=== PATIENT | female | born 1940 | race Caucasian/White ===

== ENCOUNTER 2016-07-09 11:25 | Inpatient (IN) | payer MEDICARE, OTHER ==
[2016-07-07 12:27] LABS: HEMOGLOBIN 11.3 g/dL (12.0-16.0)
[2016-07-07 12:29] LABS: HEMATOCRIT 33.3 % (36.0-48.0)
[2016-07-07 12:42] LABS: BUN (BLOOD UREA NITROGEN) 12 MG/DL (6-23); CALCIUM, SERUM 9.3 MG/DL (8.5-10.4); CHLORIDE, SERUM 99 MMOL/L (96-112); CO2 (CARBON DIOXIDE) 28 MMOL/L (24-34); CREATININE 0.63 MG/DL (0.55-1.02); GFR AFRICAN AMERICAN 102 ML/MIN (>=60); GFR NON AFRICAN AMERICAN 88 ML/MIN (>=60); POTASSIUM, SERUM 4.1 MMOL/L (3.5-5.3); SODIUM, SERUM 134 MMOL/L (135-148)
[2016-07-07 12:43] LABS: GLUCOSE, SERUM 169 MG/DL (60-99)
--- NOTE | ~2016-07-09 | OP ---
Record Of Operation [facility] [address] [place]. [address] NAME: MARCOS VEGA : 41 STATUS : ADM IN PAT#: [id number] AGE: 75 ADM/REG DATE : 07/09/16 MR#: [id number] REPORT SERV DATE: 07/10/16 DICTATED BY: RUSS PIRES DATE: 07/09/16 REPORT STATUS : Draft TRANSCRIBED BY: MODL DATE: 07/09/16 DATE OF PROCEDURE: PREOPERATIVE DIAGNOSES: Pseudoarthrosis, broken hardware, and loss of lumbar lordosis. POSTOPERATIVE DIAGNOSES: Pseudoarthrosis, broken hardware, and loss of lumbar lordosis. PROCEDURES: 1. Hardware removal, lumbar spine. 2. Posterior spinal fusion with dual aurora Solera titanium spinal instrumentation, L2 to the pelvis. SURGEON: Russ Pires D.O. RV MECHANIC: Edmond Meza. ANESTHESIA: General. ESTIMATED BLOOD LOSS: 150 mL. INDICATION FOR SURGERY: Indications for surgery and risks were explained. They are listed in the history and physical as well as office notes. See that for detail. DESCRIPTION OF PROCEDURE: Antibiotic prophylaxis was given. Neurophysiology monitoring leads were inserted. The patient was brought to the operative suite. General anesthetic including endotracheal intubation was administered. Fuller catheter was placed with sterile technique. The patient was placed prone on a Moreno spine frame. Bony prominences were carefully padded. Thoracolumbar spine was scrubbed with Hibiclens solution. DuraPrep was painted. Sterile drapes were applied. Even with passive positioning in a prone position, we saw some correction of the lumbar kyphotic deformity. With loupe magnification and headlight illumination, a midline incision was carried out at the T12 of the pelvis. The midline and fascial incision was carried out. Hardware was exposed completely. There was hardware at L2 and L3. There was a broken hardware that had broken just above the L5. The screw at L5 on the left was removed. The screw at L5 on the right as well as the broken aurora on the right side was removed. We then used a carbide bit and transected the aurora between L2 and L3, so that we could use a ravin for reconnecting. The screws at L3 were removed. We carefully debrided the soft tissues, and was able to expose the transverse processes from L2 to L3 as well as L5 and the proximal sacrum. There was already a fusion at L5-S1, and after the debridement, the wound was irrigated, we then placed a stab wound over the right posterior superior iliac spine. A percutaneous pin with navigational frame was attached and intraoperative CT scan was obtained. CT information was used to register the navigational system. Record Of Operation [facility] [address] [address] NAME: MARCOS VEGA : 41 STATUS : ADM IN PAT#: [id number] AGE: 75 ADM/REG DATE : 07/09/16 MR#: [id number] REPORT SERV DATE: 07/10/16 DICTATED BY: RUSS PIRES DATE: 07/09/16 REPORT STATUS : Draft TRANSCRIBED BY: ALLISON DATE: 07/09/16 With navigational assistance, we were then able to drill a military pilot hole through the S2 sacral element to the alum with sacroiliac screw. Printing Machinist hole was developed on left and right side. Also, the S1 military pilot hole was drilled. We then tapped the S1 and the sacroiliac screw. We then inserted an 8.5 x 70 mm screw at S2 into the ilium and a 7.5 x 50 mm at S1 bilateral. We then placed new 8.5 x 50 mm screws at L5 and we then placed a 7.5 x 50 at L3 on the right. At L3 on the left, there was an actual broken screw with the shaft of the screw still in the pedicle. We then cut a aurora appropriately, contoured it for lordosis. The aurora was then connected with a ravin to the original hardware from L2 distally. We connected the aurora to all the tulips of the pedicle screws. We corrected as much of the deformity as possible. We then used an open close [id number] connectors. We placed a dual aurora medially at the left and right side to reinforce and strengthen the overall construct. Finally, a 10 cm in length allograft Magna Fuse grafting material was coated with a small dosage of bone morphogenic protein from L2 to the pelvis. Any local bone that we had removed was also added to the grafting material. The posterolateral fusion from L2 to the sacrum was completed. Intraoperative CT scan though on repeat showing good position of all implants. The wound had been copiously irrigated prior to final wound closure. We did place some vancomycin 1 g powder within the wound locally. A double looped #1 PDS was used for fascial closure, subcutaneous tissue closed with 2-0 Vicryl sutures, 2-0 vertical mattress nylon suture used for skin closure. Sterile dressings applied. The patient was awakened, extubated, taken to recovery room in satisfactory condition having tolerated the procedure well. MAMADOU/ALLISON Russ Pires D.O. / [id number] CC: Russ Pires D.O.
--- NOTE | ~2016-07-09 | CN ---
Consultation Report [facility] [address] [place]. [address] NAME: MARCOS VEGA : 41 STATUS : ADM IN [facility]#: [id number] AGE: 75 ADM/REG DATE : 07/09/16 MR#: [id number] REPORT SERV DATE: 07/10/16 DICTATED BY: YURIPINGLEYLA MELENDEZ DATE: 07/10/16 REPORT STATUS : Draft TRANSCRIBED BY: MODL DATE: 07/10/16 CONSULTATION DATE OF CONSULTATION: 07/09/2016 REASON FOR CONSULTATION: Consulted for diabetes management. IDENTIFYING DATA: 1. PCP, Dr. Daniel Randall. 2. Orthopedist, Lexa Conley, previously Dr. Mele Barreto, as well as surgeon, Dr. Anup Simons. HISTORY OF PRESENT ILLNESS: This is a pleasant 75-year-old female. She is resting in bed, in no acute distress. She has a history of diabetes type 2, hypertension, high cholesterol, and osteoarthritis. The patient is admitted by Dr. Lexa Conley with difficulty in ambulation as well as back pain. She is presently status post posterior hardware removal of lumbar L3-S1, double aurora construct L2 to pelvis with fusion on 07/09/2016. [facility] has been consulted to help manage her diabetes while she is inpatient. The patient's history was obtained through interview with the patient as well as review of [employer] and [email or web address]. PAST MEDICAL HISTORY: 1. Migraine. 2. Wears glasses. 3. Osteopenia. 4. Osteoarthritis. 5. Bilateral nerve pain. 6. Hypertension. 7. High cholesterol. 8. Left bundle-branch block. 9. Bladder incontinence. 10.Diabetes, type 2 with average blood sugars 65 to 110. 11.Anxiety. 12.Problems with anesthesia in difficulty awakening and nausea and vomiting. HOME MEDICATIONS: 1. Norvasc 5 mg p.o. every morning. 2. Aspirin 81 mg p.o. every morning. 3. Calcium plus vitamin D 1200 mg p.o. twice a day. 4. Neurontin 600 mg p.o. three times daily. 5. Amaryl 2 mg p.o. at bedtime. 6. Amaryl 4 mg p.o. every morning. 7. [place]elow 5/325, one tablet p.o. every six hours, p.r.n. 8. Lantus 25 units subcu at bedtime. Consultation Report [address] [place]. [address] NAME: MARCOS VEGA : 41 STATUS : ADM IN PAT#: [id number] AGE: 75 ADM/REG DATE : 07/09/16 MR#: [id number] REPORT SERV DATE: 07/10/16 DICTATED BY: PING WELCH DATE: 07/10/16 REPORT STATUS : Draft TRANSCRIBED BY: ALLISON DATE: 07/10/16 9. Glucophage 1000 mg p.o. twice a day. 10.Centrum one tablet p.o. daily. 11.[place]-3 fatty acid 1000 mg p.o. twice a day. 12.Garlique one tablet p.o. every day at bedtime. 13.MiraLAX powder 17 g p.o. every morning. 14.Mylanta p.r.n. 15.Diovan HCT 320/25 one tablet p.o. every morning. ALLERGIES: CODEINE AND ADHESIVE TAPE. SOCIAL HISTORY: The patient is for approximately 59 years, has no children. She was a previous smoker and quit in the . She does drink a glass of red wine usually five to six days a week. She has stairs, but she stay is in the main entry of her living area in her home. She has had to use a walker and a cane for ambulation prior to her lumbar surgery. FAMILY HISTORY: She is positive for diabetes. Father had black lung and worked in the coal mines and was in 1960. Mother was diabetic. Brother is from pancreatic cancer. The patient had one brother and four sisters besides herself. SURGICAL HISTORY: 1. Bilateral IOLI in 2007. 2. Colonoscopy in 2012. 3. Bladder sling in 2003. 4. 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 5. Stress test was done in 2006. 6. Numerous lumbar surgeries, lumbar laminectomy 2000. Additional lumbar fusion in 2008. 7. Lumbar rods in 2011 and 2012 with instrumentation. 8. Breast surgery for benign cyst in 1974, in 1983, and 1989. 9. Neck surgery for benign nodule in 1979 and 1982. 10.Throat surgery in 2002. 11.Left wrist surgery in 2009. REVIEW OF SYSTEMS: Negative other than what is included with HPI. The patient awakens without difficulty, is alert and oriented x3. Has no shortness of breath. No nausea or vomiting. No abdominal pain. No chest pain. No fever. Displays no confusion or agitation. PHYSICAL EXAMINATION: VITAL SIGNS: From today blood pressure 126/52, respiratory rate 16, heart rate 87, temperature 97.7, O2 saturation 97% on 3 L nasal cannula. GENERAL: This is a very pleasant 75-year-old female, resting in bed. She is in no acute distress. She awakens for this consultation with her family at bedside. NEURO: Her head is atraumatic, normocephalic. She is alert and oriented x3. Cranial nerves are intact. Mood is pleasant and appropriate. Consultation Report [address] [place]. [address] NAME: MARCOS VEGA : 41 STATUS : ADM IN [facility]#: [id number] AGE: 75 ADM/REG DATE : 07/09/16 MR#: [id number] REPORT SERV DATE: 07/10/16 DICTATED BY: PING WELCH DATE: 07/10/16 REPORT STATUS : Draft TRANSCRIBED BY: ALLISON DATE: 07/10/16 NECK: Supple. Trachea is midline. No JVD noted. No obvious thyromegaly or lymphadenopathy. EENT: Her sclerae are nonicteric. Pupils are equal and reactive to light. Her nares are patent. Mucous membranes moist. Tongue is midline. No deviation. Soft palate rises equally on phonation. CHEST: No pain with palpation. LUNGS: Clear to auscultation bilaterally. She has normal respiratory effort. She is diminished in the bases. She shows no increased work of breathing with conversation. She is instructed on the need to use an incentive spirometer to prevent atelectasis and pneumonia. CARDIOVASCULAR: S1, S2. No obvious murmurs, rubs, or gallops. She is on defensive monitoring with a regular rhythm and sinus rhythm with a rate at 87. ABDOMEN: Soft, nontender. She does have very hypoactive bowel sounds. No palpable organomegaly. EXTREMITIES: No edema. Normal distal pulses. No calf tenderness. She has SCDs and TEDs on for DVT prophylaxis. SKIN: Warm and dry. No unusual rashes or lesions. Normal color and turgor for age. PSYCH: She is pleasant, cooperative, appropriate mood and affect. SURGICAL WOUND SITE: Dressing is clean, dry, and intact. LABORATORY DATA: Sodium 137, potassium 3.9, chloride 102, BUN 8, creatinine 0.59, GFR 105, glucose 161, calcium 8.5. White blood cell 13.2, hemoglobin 10.4, hematocrit 30.4, platelets 276. Blood sugars were 169, 161, 180, 203. The patient has a chest x-ray that is ordered for this a.m. postoperatively. On 07/07/2016, the patient had an ECG that showed normal sinus rhythm at a rate of 78 with a left bundle-branch block and possible left atrial enlargement. The patient had a previous myocardial perfusion scan on 07/2007, which showed no ischemia and an EF of greater than 50%. ASSESSMENT AND PLAN: 1. Diabetes ,type 2. Aware. The patient does check her blood sugars two times a day. She is normally on Amaryl, metformin, and Lantus at home. Presently, her Amaryl and metformin are held. She is on a sliding scale insulin level 2. Her Lantus will be restarted when she can be placed on a solid diet of cardiac 1800 ADA when okay with Dr. Conley. We will have a informatics educator to see her regarding diet and monitoring of blood sugars. For now, we will continue holding metformin and Amaryl. 2. Hypertension. Aware. The patient is on blood pressure medicines. Presently, her blood pressure is controlled. We will continue her Norvasc and her Diovan HCT in the morning and her a.m. dose of aspirin will be held. 3. Neuropathy. Aware. The patient will be continued on her gabapentin. 4. Labs: For a.m. BMP, magnesium, phosphorus, CBC, hemoglobin A1c, and a portable chest x- ray. Consultation Report [address] [address] NAME: MARCOS VEGA : 41 STATUS : ADM IN [facility]#: [id number] AGE: 75 ADM/REG DATE : 07/09/16 MR#: [id number] REPORT SERV DATE: 07/10/16 DICTATED BY: PING WELCH DATE: 07/10/16 REPORT STATUS : Draft TRANSCRIBED BY: ALLISON DATE: 07/10/16 [facility] would like to thank you for this consultation. Let us know if we could be of further assistance. CAL Ping Welch NP / [id number] CC: Lexa Conley D.O.
--- NOTE | ~2016-07-09 | DS ---
Discharge Summary [facility] [address] [place]. [address] NAME: MARCOS VEGA : 41 STATUS : DIS IN PAT#: [id number] AGE: 75 ADM/REG DATE : 07/09/16 MR#: [id number] REPORT SERV DATE: 07/21/16 DICTATED BY: LEXA PIRES DATE: 07/18/16 REPORT STATUS : Draft TRANSCRIBED BY: MODLeticia DATE: 07/18/16 Data Collection from hospitalization DISCHARGE DIAGNOSES: 1. Pseudoarthrosis, L3-4. 2. Flat back deformity. 3. Diabetes mellitus type 2. 4. Osteoarthritis. 5. Osteopenia. CONSULTATIONS: Ping Parker NP PROCEDURES PERFORMED: Hardware removal, lumbar spine, posterior spinal fusion with dual-aurora Solera titanium spinal instrumentation L2 to the pelvis, 07/09/2016. PATHOLOGY: Tissue from lumbar spine area, benign soft tissue, reactive changes and granular pigmented material resembling tattoo or carbonaceous material, benign bone and cartilage. Orthopedic hardware, see gross examination. MEDICATIONS: Norvasc 5 mg every morning, aspirin 81 mg every morning, calcium plus vitamin D 1200 mg twice daily, Neurontin 600 mg three times daily, MiraLAX powder one packet daily, Diovan 320 mg daily, Levemir 25 units subcutaneously at bedtime, Mylanta 30 mL as needed, Dulcolax 10 mg rectally as needed, Dulcolax 15 mg orally as needed, Valium 2 mg every four hours as needed, Glucophage 1000 mg twice daily, [place] 7.5/325 one or two every 4 hours as needed, milk of magnesia 30 mL twice daily as needed, Zofran 4 mg every four hours as needed, Phenergan 6.25 mg every four hours as needed, fleets enema rectally as needed. CONDITION AT DISCHARGE: Upon discharge, she did appear to be doing well and had no complaints. DISPOSITION: She had been discharged with transfer to [facility] to continue a diabetic diet. She was also to continue with physical therapy and occupational therapy as directed. She was to follow up with Cayla Almeida on 07/24/2016. HOSPITAL COURSE: This 75-year-old female who had had previous L1-S1 fusion. She had done well following corrective surgery for flat back deformity, but now had come in with a aurora protruding through the skin distally near the L5 area. She has had the previous surgery several years ago, but only now had the aurora that had actually come through the skin. She was admitted for presumed pseudoarthrosis in the lower lumbar spine and then some place also she had fallen and there was some increasing flat back deformity following the aurora breakage and the screw protruding through the skin. She was to have an open procedure with a aurora being cutoff at approximately L3. She was then to have screws at L5-S1 and S2 sacroiliac screws were to be placed. This will be a aurora connected through the ravin, then there will be a 2nd aurora added on each side to try to increase the overall strength across the thoracolumbar junction and prevent aurora breakage again. She did understand there was definitely a risk involved. The risks and benefits of surgery as well as alternatives had been discussed with the patient and she was agreeable to proceed. She was admitted for this and further treatment. Upon admission to the hospital, she had been taken to the operating Discharge Summary [address] [address] NAME: MARCOS VEGA : 41 STATUS : DIS IN PAT#: [id number] AGE: 75 ADM/REG DATE : 07/09/16 MR#: [id number] REPORT SERV DATE: 07/21/16 DICTATED BY: LEXA PIRES DATE: 07/18/16 REPORT STATUS : Draft TRANSCRIBED BY: ALLISON DATE: 07/18/16 room where she did undergo the above procedure. She tolerated this well and was transferred to the recovery room. On postop, she had been seen by Ping Parker for diabetes management. She noted the patient was normally on Amaryl, metformin, and Lantus at home. However, her Amaryl and metformin were on hold and she was on sliding scale insulin level 2. Her Lantus insulin was restarted and she had been placed on an 1800-calorie ADA diet when she was able to eat solids. She was also to undergo diabetic education while in the hospital. She was to continue with Norvasc and Diovan HCT for her blood pressure. She was also to continue with gabapentin for her neuropathy. On postop day #1, she did appear to be doing well and had no complaints. She had been placed on oral medications and was evaluated by Physical Therapy. Her hemoglobin A1c was checked and was noted to be at 7.7. Levemir was to be started at a lower rate. She was continued on her current medications. On postop day #2, she was noted to be tolerating a liquid diet without difficulty. She was afebrile and her vital signs had remained stable. She was noted to have some nausea and vomiting, however this did resolve. She was noted to be hypokalemic with a potassium of 3.3 and this was being replaced per electrolyte protocol. She was also hyponatremic with a sodium of 131. On postop day 3, she was afebrile and her vital signs had remained stable. Her only complaint was that she had not had a bowel movement yet, she did state that she takes MiraLAX at home and her MiraLAX dosage was increased. Her hemoglobin was at 10.3, hematocrit 30.4. She was encouraged to ambulate with physical therapy. On postop day #4, she did remain in stable condition, however had complaints of the lumbar dressing itching. She did state that she had a history of rash and itching with adhesives and she was noted to have a small area of redness at the upper area of the Tegaderm site. She was instructed to use ice to the area as needed, and she was to have her dressing changed if the rash worsened. She did remain in stable condition and then was discharged later that same day with the above instructions. Information collected by: Kin Rodríguez. I submit the above information as my discharge summary. MIGUEL/ALLISON Lexa Pires D.O. / [id number] CC: Jean Carlos Ponce M.D. [facility]
--- NOTE | ~2016-07-09 | PREOPHP ---
PreOp History and Physical [facility] [address] [place]. [address] NAME: MARCOS VEGA : 42 STATUS : ADM IN [facility]#: [id number] AGE: 75 ADM/REG DATE : 07/09/16 MR#: [id number] REPORT SERV DATE: 07/10/16 DICTATED BY: LEXA PIRES DATE: 07/09/16 REPORT STATUS : Draft TRANSCRIBED BY: ALLISON DATE: 07/09/16 CHIEF COMPLAINT: Low back pain. HISTORY OF PRESENT ILLNESS: This is a 75-year-old female who has had previous L1-S1 fusion. She has done well following corrective surgery for a flat back deformity, but now has come in with a aurora protruding through the skin distally near the L5 area. The patient has had the previous surgery several years ago, but only now has had the aurora that has actually come through the skin. The patient is now being admitted for a presumed pseudoarthrosis in the lower lumbar spine and in some place. Also, the patient has fallen and there is some increasing flat back deformity following the aurora breakage and the screw protruding through the skin. We will have an open procedure with the aurora being cut off at approximately L3. We will then place screws at L5-S1 and S2 sacroiliac screws will be placed. This will be a aurora connected through the ravin. Then, there will be a second aurora added on each side to try to increase the overall strength across the thoracolumbar junction and prevent aurora breakage again. The patient understands there was definitely a risk involved. The risks including but not limited to persistent chronic deformity, chronic back pain, infection, there could always be some vascular or neurologic injury, although those were very small. Perioperative complications such as UTI, PE, pneumonia, VT, CVA, etc., were explained. Consent form has been signed. PAST MEDICAL HISTORY: Included diabetes mellitus type 2. She has osteoarthritis and osteopenia. Please note, we do have a recent DEXA scan, which shows only the osteopenia. There was no osteoporosis. PAST SURGICAL HISTORY: She has had lumbar spine surgery x2, carpal tunnel release, cataract, extraction of lens implant, skin biopsy, and skin cancer removal. CURRENT MEDICATIONS: Include amlodipine, aspirin, calcium, Centrum, gabapentin, glyburide, Lantus insulin and metformin, tramadol, valsartan. ALLERGIES: CODEINE CAUSES GI UPSET, AND VITAMINS. SOCIAL HISTORY: She is . Retired. Does not use any tobacco or alcohol. FAMILY HISTORY: Her mother had coronary artery disease. REVIEW OF SYSTEMS: She wears corrective lenses. Denies any chest pain, pressure, or shortness of breath. PHYSICAL EXAMINATION: VITAL SIGNS: She is 5 feet 6 inches, 148 pounds. BMI is 23.9. GENERAL: She is alert, cooperative, well oriented, ambulates independently. HEENT: Grossly normal except that her eyes have been altered by prior surgery. LUNGS: Clear to auscultation. HEART: Rate is regular and rhythmic. ABDOMEN: Soft with good bowel sounds. No peritoneal signs are noted. MUSCULOSKELETAL: The spine itself has some deformity. There is flat back deformity, but on PreOp History and Physical [address] [place]. [address] NAME: MARCOS VEGA : 42 STATUS : ADM IN [facility]#: [id number] AGE: 75 ADM/REG DATE : 07/09/16 MR#: [id number] REPORT SERV DATE: 07/10/16 DICTATED BY: LEXA PIRES DATE: 07/09/16 REPORT STATUS : Draft TRANSCRIBED BY: MODL DATE: 07/09/16 the left side, there is still a aurora protruding right through the skin. There were no obvious signs of infection. There is no drainage, etc. I did not take her through range of motion. She has negative straight leg raising sign. Her motor strengths are normal in both lower extremities. Her reflexes are absent. There is some stocking-glove decreased sensation from just below the knees distally including the feet and ankles. Toes are downgoing. No ankle clonus is found. No evidence of myelopathy noted. Orthopedically, she has no pain with movement of the hips, knees, or ankles. There is weak pulses in all four extremities, but they are symmetrical. No abnormal skin lesions are found. ASSESSMENT AND RECOMMENDATIONS: As listed above. /ALLISON Lexa Pires D.O. / [id number] CC: Jean Carlos Ponce M.D.
[~2016-07-09 11:25] MED LIST: AMARYL2 PO; AMARYL4 PO; ASAB PO; CALTRA600D PO; CENTRUM PO; CYANO1000T PO; DIOVAN HC2 PO; DIOVAN HCT320 MG/25 PO; FISH-EPA1000 MG PO; GARLIQUE PO; GLUCOPHAGE1000 MG PO; GLUCPH PO; GLYCOLAX POWDER PO; LANTUS SC; LIOR10 PO; MULTIPLE VIT PO; MYLANTA; NEUR600 PO; NORCO1 TA1 PO; NORV5 PO; ULTRAM50 PO; ZOCOR20 PO
[2016-07-09 19:32] LABS: BASOPHILS 0.2 %; BASOPHILS ABSOLUTE 0.03 10/3/uL (0.0-0.16); EOSINOPHILS 0.3 %; EOSINOPHILS ABSOLUTE 0.04 10/3/uL (0.0-0.53); HEMATOCRIT 30.4 % (36.0-48.0); HEMOGLOBIN 10.4 g/dL (12.0-16.0); IMMATURE GRANULOCYTES 0.3 %; IMMATURE GRANULOCYTES ABSOLUTE 0.04 10/3/uL (0.0-0.11); LYMPHOCYTES 5.6 %; LYMPHOCYTES ABSOLUTE 0.74 10/3/uL (0.67-4.30); MEAN CORPUS HGB CONC 34.2 g/dL (32.0-36.0); MEAN CORPUSCULAR HEMOGLOB 28.6 pg (26.0-34.0); MEAN PLATELET VOLUME 8.6 fL (9.2-13.0); MONOCYTES ABSOLUTE 0.13 10/3/uL (0.21-1.20); NEUTROPHILS 92.6 %; NEUTROPHILS ABSOLUTE 12.26 10/3/uL (2.02-8.40); PLATELET COUNT 276 10/3/uL (150-400); RBC DISTRIBUTION WIDTH 13.9 % (12.0-16.0); RED CELL COUNT 3.64 10/6/uL (4.0-5.6)
[2016-07-09 19:35] LABS: MANUAL DIFF NO %; MEAN CORPUSCULAR VOLUME 83.5 fL (80-100); WHITE BLOOD CELLS 13.2 10/3/uL (4.5-10.5)
[2016-07-09 19:45] LABS: CALCIUM, SERUM 8.5 MG/DL (8.5-10.4); CHLORIDE, SERUM 102 MMOL/L (96-112); CO2 (CARBON DIOXIDE) 28 MMOL/L (24-34); CREATININE 0.59 MG/DL (0.55-1.02); GFR AFRICAN AMERICAN 105 ML/MIN (>=60); GFR NON AFRICAN AMERICAN 90 ML/MIN (>=60); GLUCOSE, SERUM 161 MG/DL (60-99); POTASSIUM, SERUM 3.9 MMOL/L (3.5-5.3); SODIUM, SERUM 137 MMOL/L (135-148)
[2016-07-09 19:47] LABS: BUN (BLOOD UREA NITROGEN) 8 MG/DL (6-23)
[2016-07-10 04:41] LABS: BASOPHILS 0.1 %; BASOPHILS ABSOLUTE 0.01 10/3/uL (0.0-0.16); EOSINOPHILS 0 %; HEMATOCRIT 30.4 % (36.0-48.0); HEMOGLOBIN 10.3 g/dL (12.0-16.0); IMMATURE GRANULOCYTES 0.4 %; IMMATURE GRANULOCYTES ABSOLUTE 0.05 10/3/uL (0.0-0.11); LYMPHOCYTES 4.6 %; LYMPHOCYTES ABSOLUTE 0.55 10/3/uL (0.67-4.30); MEAN CORPUS HGB CONC 33.9 g/dL (32.0-36.0); MEAN CORPUSCULAR HEMOGLOB 28.5 pg (26.0-34.0); MEAN CORPUSCULAR VOLUME 84.2 fL (80-100); MONOCYTES 3.7 %; MONOCYTES ABSOLUTE 0.44 10/3/uL (0.21-1.20); NEUTROPHILS 91.2 %; NEUTROPHILS ABSOLUTE 10.93 10/3/uL (2.02-8.40); PLATELET COUNT 293 10/3/uL (150-400); RBC DISTRIBUTION WIDTH 13.7 % (12.0-16.0); RED CELL COUNT 3.61 10/6/uL (4.0-5.6)
[2016-07-10 04:43] LABS: MANUAL DIFF NO %
[2016-07-10 04:46] LABS: BUN (BLOOD UREA NITROGEN) 12 MG/DL (6-23); CHLORIDE, SERUM 99 MMOL/L (96-112); CO2 (CARBON DIOXIDE) 26 MMOL/L (24-34); CREATININE 0.48 MG/DL (0.55-1.02); GFR AFRICAN AMERICAN 112 ML/MIN (>=60); GFR NON AFRICAN AMERICAN 97 ML/MIN (>=60); GLUCOSE, SERUM 240 MG/DL (60-99); PHOSPHORUS, SERUM 3.8 MG/DL (2.5-4.5); POTASSIUM, SERUM 4.2 MMOL/L (3.5-5.3); SODIUM, SERUM 132 MMOL/L (135-148)
[2016-07-11 05:37] LABS: BUN (BLOOD UREA NITROGEN) 13 MG/DL (6-23); CALCIUM, SERUM 8.2 MG/DL (8.5-10.4); CHLORIDE, SERUM 97 MMOL/L (96-112); CO2 (CARBON DIOXIDE) 28 MMOL/L (24-34); CREATININE 0.43 MG/DL (0.55-1.02); GFR AFRICAN AMERICAN 116 ML/MIN (>=60); GFR NON AFRICAN AMERICAN 100 ML/MIN (>=60); SODIUM, SERUM 131 MMOL/L (135-148)
[2016-07-11 05:44] LABS: GLUCOSE, SERUM 120 MG/DL (60-99); POTASSIUM, SERUM 3.3 MMOL/L (3.5-5.3)
[2016-07-12 05:07] LABS: BUN (BLOOD UREA NITROGEN) 10 MG/DL (6-23); CHLORIDE, SERUM 99 MMOL/L (96-112); CO2 (CARBON DIOXIDE) 27 MMOL/L (24-34); CREATININE 0.35 MG/DL (0.55-1.02); GFR AFRICAN AMERICAN 124 ML/MIN (>=60); GFR NON AFRICAN AMERICAN 107 ML/MIN (>=60); GLUCOSE, SERUM 127 MG/DL (60-99); POTASSIUM, SERUM 4.1 MMOL/L (3.5-5.3); SODIUM, SERUM 132 MMOL/L (135-148)
== END 2016-07-13 12:04 | DRG 460 ==
LOC: SDC 11:25 → SDC/OF 19:17 → 3SO 21:11
PROVIDERS: Internal Medicine; Nurse Practitioner Family; Orthopaedic Surgery Orthopaedic Surgery of the Spine
PROC: 4A11X4G Monitoring of Peripheral Nervous Electrical Activity, Intraoperative, External Approach (ICD-10-PCS; 2016-07-09)
PROC: 0SG10Z1 (ICD-10-PCS; principal; 2016-07-09 11:45)
PROC: 0SG30Z1 (ICD-10-PCS; 2016-07-09 11:45)
DX: M96.0 Pseudarthrosis after fusion or arthrodesis (principal); G62.9 Polyneuropathy, unspecified; E11.9 Type 2 diabetes mellitus without complications; I10 Essential (primary) hypertension
CPT/HCPCS: 71010; 80048; 82962; 83036; 83735; 84100; 85014; 85018; 85025; 88300; 88304; 88311; 93005; 97116-GP; 97162-GP; A9270-GY; C1713; J0690; J1170; J1644; J2250; J2405; J2550; J2710; J3010; J3370; J3475